=== PATIENT | female | born 1995 | race Caucasian/White ===

== ENCOUNTER 2021-07-26 07:34 | Outpatient (CLI) | payer OTHER ==
[2021-07-26 17:42] LABS: SARS-CoV-2 PCR by NAA Not Detected (NotDetected)
== END 2021-07-26 07:35 | disposition home or self-care (01) ==
LOC: CSHLAB 07:34
PROVIDERS: ATTEND Obstetrics & Gynecology
DX: Z20.822 Contact with and (suspected) exposure to COVID-19 (principal)
CPT/HCPCS: U0003; U0005

== ENCOUNTER 2021-07-26 08:59 | Inpatient (IN) | payer OTHER ==
[2021-07-30 19:39] VITALS: BMI 25.0
[2021-07-30] MEDS ORDERED: Butorphanol Tartrate 1 MG/ML VIAL SLOW IVP PRN (19:55)
[2021-07-30] MEDS ORDERED: Lidocaine 1% (PF) 30 ML VIAL SC PRN (19:55)
[2021-07-30] MEDS ORDERED: Ondansetron PF 4 MG/2 ML Vial IVP PRN (19:55)
[2021-07-30] MEDS ORDERED: Promethazine HCl 25 MG/ML VIAL IM PRN (19:55)
[2021-07-30] MEDS ORDERED: hydrALAZINE 20 MG/ML VIAL SLOW IVP PRN (19:55)
[2021-07-30] MEDS ORDERED: Misoprostol 100 MCG TAB ONE (20:03)
[2021-07-30 20:29] LABS: Hemoglobin 13.3 g/dL (12.0-15.5); Mean Corpuscular HGB CONC 35.7 g/dL (32.0-36.0); Mean Corpuscular Hemoglobin 30.9 pg (27.0-33.0); Mean Corpuscular Volume 86.5 fl (81.6-98.3); Mean Platelet Volume 12.7 fl (7.4-10.4); Platelet Count 137 10x3/uL (150-450); RBC Distribution Width 11.9 % (11.5-14.5); Red Blood Cell (RBC) Count 4.31 10x6/uL (3.90-5.03); White Blood Cell (WBC) Count 11.7 10x3/uL (3.5-10.5)
[2021-07-30] MEDS ORDERED: NS w/ Oxytocin 30 units 500 ML IVPB SCH (20:30)
[2021-07-30] MEDS ORDERED: Misoprostol 100 MCG TAB VAG SCH (20:30)
[2021-07-30] MEDS ORDERED: Lactated Ringer's 1,000 ML IV SCH (20:30)
[2021-07-30] MEDS ORDERED: NS w/ Oxytocin 30 units 500 ML IV SCH ×2 (20:30)
[2021-07-30] MEDS ORDERED: Ibuprofen 800 MG TAB PO PRN (20:30)
[2021-07-30] MEDS ORDERED: HYDROcodone/Acetaminophen 5/325 mg Tablet PO PRN ×2 (20:30)
[2021-07-30 21:01] LABS: Hep B Surf Ag Non-Reactive S/CO (NonReactive); Syphilis Antibody Nonreactive (Nonreactive)
[2021-07-30] MEDS: Misoprostol 100 MCG TAB VAG SCH (23:30)
[2021-07-31] MEDS: Misoprostol 100 MCG TAB VAG SCH ×2 (02:25→07:30)
[2021-07-31] MEDS ORDERED: Fentanyl 2 mcg/Bup 0.1% Cadd 100 ML ONE (03:35)
[2021-07-31] MEDS ORDERED: Hydrocerin (Eucerin) Cream 120 gm Jar TOP PRN (04:29)
[2021-07-31] MEDS ORDERED: Naloxone HCl 0.4 mg/ml Vial IVP PRN ×2 (04:29)
[2021-07-31] MEDS ORDERED: diphenhydrAMINE 50 MG/ML VIAL IVP PRN (04:29)
[2021-07-31] MEDS ORDERED: ePHEDrine Sulfate 50 MG/10 ML VIAL SLOW IVP PRN (04:29)
[2021-07-31] MEDS ORDERED: Ondansetron PF 4 MG/2 ML Vial IVP PRN ×2 (04:29→15:19)
[2021-07-31] MEDS ORDERED: Promethazine HCl 25 MG/ML VIAL IM PRN (04:29)
[2021-07-31] MEDS ORDERED: Acetaminophen 325 MG TAB PO PRN (04:29)
[2021-07-31] MEDS ORDERED: Lactated Ringer's 500 ML IV PRN (04:29)
[2021-07-31] MEDS ORDERED: Fentanyl 2 mcg/Bupivacaine 0.1% Cassette 100 ML EPIDURAL SCH (04:30)
[2021-07-31] MEDS ORDERED: Communication Order-Pharmacy FS SCH (04:30)
[2021-07-31] MEDS ORDERED: Milk Of Magnesia 30 ML UDCUP PO PRN (15:19)
[2021-07-31] MEDS ORDERED: HYDROcodone/Acetaminophen 5/325 mg Tablet PO PRN ×2 (15:19)
[2021-07-31] MEDS ORDERED: diphenhydrAMINE 25 MG CAP PO PRN (15:19)
[2021-07-31] MEDS ORDERED: Bisacodyl 10 MG SUPP PR PRN (15:19)
[2021-07-31] MEDS ORDERED: hydrALAZINE 20 MG/ML VIAL SLOW IVP PRN (15:19)
[2021-07-31] MEDS ORDERED: Preparation H Ointment 28 GM TUBE PR PRN (15:19)
[2021-07-31] MEDS ORDERED: Boostrix 0.5 ML (Tdap) VIAL IM ONE (15:19)
[2021-07-31] MEDS ORDERED: Lanolin Ointment 7 GM TUBE TOP PRN (15:19)
[2021-07-31] MEDS: Ferrous Sulfate 325 MG TAB PO SCH (17:51)
[2021-07-31] MEDS: Ibuprofen 800 MG TAB PO SCH (22:59)
[2021-07-31] MEDS: Docusate Calcium (SURFAK) 240 MG CAP PO SCH (22:59)
[2021-08-01] MEDS: Ibuprofen 800 MG TAB PO SCH ×2 (06:02→14:14)
[2021-08-01] MEDS: Ferrous Sulfate 325 MG TAB PO SCH (07:12)
[2021-08-01] MEDS: Docusate Calcium (SURFAK) 240 MG CAP PO SCH (08:10)
[2021-08-01] MEDS ORDERED: Prenatal Vitamin 1 TAB PO SCH (09:00)
[2021-08-01 13:04] VITALS: BP 108/64; TEMP 98.5
== END 2021-08-01 16:09 | disposition home or self-care (01) | DRG 807 ==
LOC: CSHLD 07-30 19:04 → CSHPED 07-31 17:42
PROVIDERS: ADMIT Obstetrics & Gynecology; ATTEND Obstetrics & Gynecology
PROC: 10E0XZZ Delivery of Products of Conception, External Approach (ICD-10-PCS; principal; 2021-07-31)
PROC: 0KQM0ZZ Repair Perineum Muscle, Open Approach (ICD-10-PCS; 2021-07-31)
PROC: 3E033VJ Introduction of Other Hormone into Peripheral Vein, Percutaneous Approach (ICD-10-PCS; 2021-07-31)
DX: O48.0 Post-term pregnancy (principal); Z37.0 Single live birth; Z3A.40 40 weeks gestation of pregnancy; O70.1 Second degree perineal laceration during delivery
CPT/HCPCS: 36415; 85027; 86780; 86850; 86870; 86900; 86901; 87340; J2590

== ENCOUNTER 2023-08-04 06:00 | Inpatient (IN) | payer BC, OTHER ==
[2023-08-04] MEDS ORDERED: Butorphanol Tartrate 1 MG/ML VIAL SLOW IVP PRN (07:18)
[2023-08-04] MEDS ORDERED: Promethazine HCl 25 MG/ML VIAL IM PRN (07:18)
[2023-08-04] MEDS ORDERED: Lidocaine 1% (PF) 30 ML VIAL SC PRN (07:18)
[2023-08-04] MEDS ORDERED: Lactated Ringer's 1,000 ML IV SCH (07:18)
[2023-08-04] MEDS ORDERED: Ondansetron PF 4 MG/2 ML Vial IVP PRN (07:18)
[2023-08-04] MEDS ORDERED: Ibuprofen 800 MG TAB PO PRN (07:18)
[2023-08-04] MEDS ORDERED: HYDROcodone/Acetaminophen 5/325 mg Tablet PO PRN ×2 (07:18)
[2023-08-04] MEDS ORDERED: Oxytocin 30 units/NS 500 ML 500 ML IV SCH ×3 (07:18)
[2023-08-04] MEDS ORDERED: hydrALAZINE 20 MG/ML VIAL SLOW IVP PRN (07:18)
[2023-08-04] MEDS ORDERED: Oxytocin 30 units/NS 500 ML 500 ML ONE (07:19)
[2023-08-04 07:34] LABS: Hemoglobin 12.5 g/dL (12.0-15.5); Mean Corpuscular HGB CONC 35.7 g/dL (32.0-36.0); Mean Corpuscular Hemoglobin 30.9 pg (27.0-33.0); Mean Corpuscular Volume 86.6 fl (81.6-98.3); Mean Platelet Volume 12.4 fl (7.4-10.4); Platelet Count 136 10x3/uL (150-450); Red Blood Cell (RBC) Count 4.04 10x6/uL (3.90-5.03); White Blood Cell (WBC) Count 6.8 10x3/uL (3.5-10.5)
[2023-08-04 07:42] VITALS: BMI 24.3
[2023-08-04 08:09] LABS: Syphilis Antibody Nonreactive (Nonreactive)
[2023-08-04 08:10] LABS: HBSAg Index 0.19 S/CO (0-0.99); Hep B Surf Ag - L&D Non-Reactive S/CO (NonReactive)
[2023-08-04] MEDS ORDERED: fentaNYL/Ropivacaine Epidural 100 ML ONE (16:59)
[2023-08-05] MEDS ORDERED: Oxytocin 30 units/NS 500 ML 500 ML IV SCH (02:44)
[2023-08-05] MEDS ORDERED: Preparation H Ointment 28 GM TUBE PR PRN (02:44)
[2023-08-05] MEDS ORDERED: Lanolin Ointment 7 GM TUBE TOP PRN (02:44)
[2023-08-05] MEDS ORDERED: Bisacodyl 10 MG SUPP PR PRN (02:44)
[2023-08-05] MEDS ORDERED: Boostrix 0.5 ML (Tdap) VIAL (>/=7 yrs of age) IM ONE (02:44)
[2023-08-05] MEDS ORDERED: diphenhydrAMINE 25 MG CAP PO PRN (02:44)
[2023-08-05] MEDS ORDERED: hydrALAZINE 20 MG/ML VIAL SLOW IVP PRN (02:44)
[2023-08-05] MEDS ORDERED: HYDROcodone/Acetaminophen 5/325 mg Tablet PO PRN ×2 (02:44)
[2023-08-05] MEDS ORDERED: Milk Of Magnesia 30 ML UDCUP PO PRN (02:44)
[2023-08-05] MEDS: Ibuprofen 800 MG TAB PO SCH ×3 (02:58→21:01)
[2023-08-05] MEDS ORDERED: Docusate 100 MG CAP PO SCH (03:00)
[2023-08-05] MEDS ORDERED: Ibuprofen 800 MG TAB PO SCH (06:00)
[2023-08-05] MEDS: Ferrous Sulfate 325 MG TAB PO SCH ×2 (07:15→14:51)
[2023-08-05] MEDS: Docusate 100 MG CAP PO SCH ×2 (08:10→21:00)
[2023-08-05] MEDS ORDERED: Prenatal Vitamin 1 TAB PO SCH (09:00)
[2023-08-05] MEDS ORDERED: Bupivacaine 0.25% HCL 30 ML VIAL ONE (15:00)
[2023-08-05 20:43] VITALS: BP 122/62; TEMP 98.5
== END 2023-08-05 22:30 | disposition home or self-care (01) | DRG 807 ==
LOC: CSHLD 06:13 → CSHPP 23:02
PROVIDERS: ADMIT Obstetrics & Gynecology; ATTEND Obstetrics & Gynecology
PROC: 10E0XZZ Delivery of Products of Conception, External Approach (ICD-10-PCS; principal; 2023-08-04)
PROC: 10907ZC Drainage of Amniotic Fluid, Therapeutic from Products of Conception, Via Natural or Artificial Opening (ICD-10-PCS; 2023-08-04)
PROC: 0UQMXZZ Repair Vulva, External Approach (ICD-10-PCS; 2023-08-04)
PROC: 3E0334Z Introduction of Serum, Toxoid and Vaccine into Peripheral Vein, Percutaneous Approach (ICD-10-PCS; 2023-08-05)
DX: O36.0130 Maternal care for anti-D [Rh] antibodies, third trimester, not applicable or unspecified (principal); Z37.0 Single live birth; O71.82 Other specified trauma to perineum and vulva; Z3A.39 39 weeks gestation of pregnancy; Z88.0 Allergy status to penicillin
CPT/HCPCS: 36415; 51702; 85027; 85461; 86780; 86850; 86870; 86900; 86901; 87340; 90384; 96372; J2590; S0020